=== PATIENT | male | born 1970 | race Caucasian/White ===

== ENCOUNTER 2019-02-05 04:28 | Emergency (ER) | payer OTHER ==
[~2019-02-05] VITALS: Ht 175.3 cm; Wt 81.6 kg
[2019-02-05 04:31] VITALS: Ht 175.3 cm; Wt 81.6 kg
[2019-02-05 04:47] LABS: BASOPHIL % 0.9 % (0-2); PLATELET COUNT 236 x10^3mcL (130-400); RED CELL DISTRIBUTION WIDTH 12.6 % (11.5-14.5)
[2019-02-05 04:56] LABS: CALCIUM 8.7 mg/dL (8.5-10.1); CARBON DIOXIDE 20.4 mmol/L (21-32); CHLORIDE SERUM 100 mmol/L (98-107); CREATININE SERUM 1.4 mg/dL (0.7-1.3); GFR1 57 mL/min; GLUCOSE SERUM 218 mg/dL (74-106); POTASSIUM SERUM 3.2 mmol/L (3.5-5.1); SODIUM SERUM 139 mmol/L (136-145)
[2019-02-05 05:03] LABS: ALBUMIN 3.8 g/dL (3.4-5.0); ALKALINE PHOSPHATASE 83 U/L (46-116); ALT/SGPT 56 U/L (16-63); AST/SGOT 43 U/L (15-37); BILIRUBIN TOTAL 0.3 mg/dL (0.20-1.00); TOTAL PROTEIN, SERUM 7.8 g/dL (6.4-8.2)
[2019-02-05 05:12] LABS: CHOLESTEROL 222 mg/dL (<200)
[2019-02-05 07:12] LABS: AMPHETAMINE QUAL UR NONE DETECTED (See below)
[2019-02-05 08:13] VITALS: BP 134/71
== END 2019-02-05 08:13 | disposition home or self-care (01) ==
LOC: ED 04:28
PROVIDERS: Specialist
DX: S01.81XA Laceration without foreign body of other part of head, initial encounter (principal); S01.20XA Unspecified open wound of nose, initial encounter; E87.6 Hypokalemia; I10 Essential (primary) hypertension; X58.XXXA Exposure to other specified factors, initial encounter; Y93.89 Activity, other specified; Y92.89 Other specified places as the place of occurrence of the external cause; Y99.8 Other external cause status
CPT/HCPCS: 90715; G0480; J0690; J3475; J7030; Q0092

== ENCOUNTER 2019-03-11 04:58 | Inpatient (IN) | payer OTHER ==
[~2019-03-11] VITALS: Ht 162.6 cm; Wt 83.0 kg
[2019-03-11 05:05] VITALS: Ht 162.6 cm; Wt 83.0 kg
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
[2019-03-11 07:10] LABS: BASOPHIL % 0.4 % (0-2); PLATELET COUNT 178 x10^3mcL (130-400); RED CELL DISTRIBUTION WIDTH 12.8 % (11.5-14.5)
--- NOTE | 2019-03-11 07:11 | NUR ---
PT LAYING IN BED, IN NAD. AT BEDSIDE. PT DENIES ANY PAIN AT THIS TIME, IN NAD. RESP EVEN AND UNLABORED,ON RA @99%. DENIES ANY NAUSEA OR PAIN. REQUESTING WATER, GIVEN , TOLERATED WELL. SEIZURE PRECAUTIONS IN PLACE. WILL CONT TO MONITOR NEEDED.
[2019-03-11 07:13] LABS: CALCIUM 8.8 mg/dL (8.5-10.1); CARBON DIOXIDE 27.3 mmol/L (21-32); CHLORIDE SERUM 105 mmol/L (98-107); GFR1 > 60 mL/min; GLUCOSE SERUM 125 mg/dL (74-106); POTASSIUM SERUM 4.5 mmol/L (3.5-5.1); SODIUM SERUM 141 mmol/L (136-145)
[2019-03-11 07:16] LABS: ALBUMIN 3.9 g/dL (3.4-5.0); ALKALINE PHOSPHATASE 87 U/L (46-116); ALT/SGPT 54 U/L (16-63); AST/SGOT 30 U/L (15-37); BILIRUBIN TOTAL 0.4 mg/dL (0.20-1.00); TOTAL PROTEIN, SERUM 7.9 g/dL (6.4-8.2)
--- NOTE | 2019-03-11 09:48 | NUR ---
NO ACUTE CHANGES IN CONDITION, PT LAYING IN BED, FAMILY AT BEDSIDE. NSR ON MONITOR. WAIITNG FOR DISPO.
[2019-03-11] MEDS ORDERED: SIMVASTATIN40 M1 (10:08)
[2019-03-11] MEDS ORDERED: COZAAR100 MG PO (10:08)
--- NOTE | 2019-03-11 11:01 | NUR ---
REPORT GIVEN TO CEASAR CASILLAS, UPDATED ON STATUS, LABS AND VITALS. PT STABLE FOR TRANSFER. ALL BELONGINGS WITH PT.
[2019-03-11 11:25] VITALS: BP 155/84
--- NOTE | 2019-03-11 11:46 | NUR ---
RECEIVED PT FROM ER. PT BROUGHT UP IN [facility]. PT A/A. BREATHING EQUAL/UNLABORED ON 1L/NC. PT C/O 10/14 CHEST PAIN. STATES PAIN IS TOLERABLE AND HE DOES NOT WANT PAIN MED. NO REDNESS/ SWELLING TO IV SITE. BED IN LOW POSITION, CALL LIGHT IN REACH, SAFETY PRECAUTIONS IN PLACE. WILL CONTINUE TO MONITOR
[2019-03-11 12:20] VITALS: BP 155/84
[2019-03-11 15:29] VITALS: BP 139/76
--- NOTE | 2019-03-11 16:32 | NUR ---
PT LYING IN BED A/A. BREATHING EQUAL/UNLABORED ON 1L/NC. PT HAS PAIN IN CHEST/ WORSE WHEN COUGHING. WILL GIVE MED. NO REDNESS/SWELLING TO IV SITE. BED IN LOW POSITION, CALL LIGHT IN REACH, SAFETY PRECAUTIONS IN PLACE, FAMILY AT BED SIDE. WILL CONTINUE TO MONITOR
[2019-03-11 16:37] LABS: microscopic required? NO
[2019-03-11 17:18] LABS: urine erythrocyte NEGATIVE (NEGATIVE)
[2019-03-11 17:28] LABS: AMPHETAMINE QUAL UR NONE DETECTED (See below)
--- NOTE | 2019-03-11 18:01 | NUR ---
PT DC'D HOME. PT A/A, BREATHING EQUAL/UNLABORED ON RA. PAIN 08/14, TRAMADOL WAS GIVEN. DISCHARGE INSTRUCTIONS/EDUCATION DISCUSSED WITH PT. PT ENCOURAGED TO F/U WITH PCP REGARDING SLEEP APNEA. NO NEW RX. PT VERBALIZED UNDERSTANDING OF ALL INSTRUCTIONS GIVEN. ALL CONCERNS ADDRESSED. PT IV REMOVED WITH CATHETER INTACT. TELE MONITOR REMOVED AND RETURNED. PT BROUGHT DOWN TO [facility] IN [facility]/C, ACCOMPANIED BY CHAPLAIN AND HIS FAMILY
== END 2019-03-11 18:04 | disposition home or self-care (01) | DRG 115 ==
LOC: ED 04:58 → DU 09:45 → EDBEDREQ 09:55 → EDBEDREQSVC 09:55 → DU 11:23
PROVIDERS: Emergency Medicine; ADMIT Internal Medicine Pulmonary Disease
DX: G47.33 Obstructive sleep apnea (adult) (pediatric) (principal); E78.00 Pure hypercholesterolemia, unspecified; I10 Essential (primary) hypertension
CPT/HCPCS: 85378; G0378; G0480; J1885; J7030; Q0092

== ENCOUNTER 2019-06-29 00:49 | Emergency (ER) | payer OTHER, MEDICAID ==
[~2019-06-29] VITALS: Ht 162.6 cm; Wt 72.6 kg
[~2019-06-29 00:49] MED LIST: COZAAR100 MG PO; SIMVASTATIN40 M1
[2019-06-29 00:56] VITALS: Ht 162.6 cm; Wt 72.6 kg
[2019-06-29 01:35] LABS: CALCIUM 9.1 mg/dL (8.5-10.1); CARBON DIOXIDE 25.7 mmol/L (21-32); CHLORIDE SERUM 106 mmol/L (98-107); GFR1 > 60 mL/min; GLUCOSE SERUM 150 mg/dL (74-106); POTASSIUM SERUM 3.7 mmol/L (3.5-5.1); SODIUM SERUM 143 mmol/L (136-145)
[2019-06-29 01:40] LABS: BASOPHIL % 0.2 % (0-2); PLATELET COUNT 196 x10^3mcL (130-400); RED CELL DISTRIBUTION WIDTH 11.6 % (11.5-14.5)
[2019-06-29 01:55] LABS: ALBUMIN 3.8 g/dL (3.4-5.0); ALKALINE PHOSPHATASE 86 U/L (46-116); ALT/SGPT 32 U/L (16-63); AST/SGOT 19 U/L (15-37); BILIRUBIN TOTAL 0.29 mg/dL (0.20-1.00); CHOLESTEROL 155 mg/dL (<200); TOTAL PROTEIN, SERUM 7.5 g/dL (6.4-8.2)
[2019-06-29 03:10] LABS: AMPHETAMINE QUAL UR NONE DETECTED (See below)
[2019-06-29 03:28] VITALS: BP 114/710
== END 2019-06-29 04:58 | disposition home or self-care (01) ==
LOC: ED 00:49
PROVIDERS: Specialist
DX: G40.909 Epilepsy, unspecified, not intractable, without status epilepticus (principal); S01.81XA Laceration without foreign body of other part of head, initial encounter; I10 Essential (primary) hypertension; X58.XXXA Exposure to other specified factors, initial encounter; Y93.89 Activity, other specified; Y92.89 Other specified places as the place of occurrence of the external cause; Y99.8 Other external cause status
CPT/HCPCS: G0480; J1165; J1885; J7030; J7050; Q0092